=== PATIENT | male | born 1990 | race Caucasian/White ===

== ENCOUNTER → 2018-09-18 14:03 | Outpatient (CLI) | payer BC, SELFPAY ==
[2018-09-18 15:38] LABS: Alanine Aminotransferase 55 U/L (12-78); Albumin Level 4.4 gm/dL (3.4-5.0); Albumin/Globulin Ratio 1.3 (1.1-1.8); Alkaline Phosphatase 59 U/L (46-116); Anion Gap 12.9 mEq/L (5-15); Aspartate Amino Transferase 14 U/L (15-37); Bilirubin,Total 2.1 mg/dL (0.2-1.0); Blood Urea Nitrogen 13 mg/dL (7-18); Carbon Dioxide 28 mmol/L (21.0-32.0); Chloride 103 mmol/L (98-107); Creatinine,Serum 1.03 mg/dL (0.70-1.30); Estimated Glomerular Filt Rate 85 ml/min (>60); GFR (African American) 103 ML/MIN (>60); Globulin 3.5 gm/dl (1.3-3.2); Potassium 3.9 mmoL/L (3.5-5.1); Sodium 140 mmol/L (136-145); Total Protein,Serum 7.9 gm/dL (6.4-8.2)
[2018-09-18 16:22] LABS: Glucose 101 mg/dL (74-106)
== END ==
PROVIDERS: Visit Provider Surgery
DX: K80.20 Calculus of gallbladder without cholecystitis without obstruction (principal)
CPT/HCPCS: 36415; 80053

== ENCOUNTER → 2018-09-24 06:12 | Outpatient (CLI) | payer BC, SELFPAY ==
[2018-09-24 06:37] LABS: Basophils % 0.6 % (0.1-2.0); Eosinophils # 0.1 K/mm3 (0.0-0.4); Eosinophils % 2.1 % (0.1-12.0); Hematocrit 47.4 % (42.0-52.0); Hemoglobin 15.7 g/dL (14.1-18.0); Lymphocytes # 2.6 K/mm3 (0.7-4.5); Lymphocytes % 39.4 % (10-50); Mean Corpuscular Hemoglobin 28.8 pg (27.0-31.2); Mean Corpuscular Volume 87.1 fl (80-94); Mean Platelet Volume 6.7 fl (7.4-10.4); Monocytes # 0.3 K/mm3 (0.1-1.0); Monocytes % 4.8 % (1.7-9.3); Neutrophils # 3.6 K/mm3 (1.8-7.8); Neutrophils % 53.2 % (37.0-80.0); Platelet Count 241 K/mm3 (142-424); Red Blood Count 5.44 M/mm3 (4.60-6.20); Red Cell Distribution Width 12.8 % (11.5-17.5); White Blood Count 6.7 K/mm3 (4.8-10.8)
[2018-09-24 06:52] LABS: Alanine Aminotransferase 83 U/L (12-78); Albumin Level 4.3 gm/dL (3.4-5.0); Alkaline Phosphatase 58 U/L (46-116); Anion Gap 11.6 mEq/L (5-15); Aspartate Amino Transferase 24 U/L (15-37); Bilirubin,Total 2.1 mg/dL (0.2-1.0); Blood Urea Nitrogen 17 mg/dL (7-18); Calcium 9.7 mg/dL (8.5-10.1); Carbon Dioxide 32 mmol/L (21.0-32.0); Chloride 100 mmol/L (98-107); Creatinine,Serum 0.94 mg/dL (0.70-1.30); Estimated Glomerular Filt Rate 95 ml/min (>60); GFR (African American) 115 ML/MIN (>60); Globulin 4.2 gm/dl (1.3-3.2); Glucose 105 mg/dL (74-106); Potassium 4.6 mmoL/L (3.5-5.1); Sodium 139 mmol/L (136-145); Total Protein,Serum 8.5 gm/dL (6.4-8.2)
== END ==
PROVIDERS: Visit Provider Surgery
DX: Z01.818 Encounter for other preprocedural examination (principal); K80.20 Calculus of gallbladder without cholecystitis without obstruction
CPT/HCPCS: 36415; 80053; 85025

== ENCOUNTER → 2018-10-03 14:13 | Outpatient (CLI) | payer BC, SELFPAY ==
[2018-10-03 14:32] LABS: Basophils % 0.5 % (0.1-2.0); Eosinophils # 0.2 K/mm3 (0.0-0.4); Eosinophils % 2.8 % (0.1-12.0); Hemoglobin 14.6 g/dL (14.1-18.0); Lymphocytes # 1.8 K/mm3 (0.7-4.5); Lymphocytes % 33.2 % (10-50); Mean Corpuscular HGB Conc 34.1 g/dL (31.8-35.4); Mean Corpuscular Hemoglobin 28.8 pg (27.0-31.2); Mean Corpuscular Volume 84.6 fl (80-94); Mean Platelet Volume 6.9 fl (7.4-10.4); Monocytes # 0.2 K/mm3 (0.1-1.0); Monocytes % 3.7 % (1.7-9.3); Neutrophils # 3.3 K/mm3 (1.8-7.8); Neutrophils % 59.9 % (37.0-80.0); Platelet Count 224 K/mm3 (142-424); Red Blood Count 5.08 M/mm3 (4.60-6.20); Red Cell Distribution Width 12.6 % (11.5-17.5); White Blood Count 5.4 K/mm3 (4.8-10.8)
[2018-10-03 15:21] LABS: Alanine Aminotransferase 59 U/L (12-78); Albumin Level 4.1 gm/dL (3.4-5.0); Albumin/Globulin Ratio 1.1 (1.1-1.8); Alkaline Phosphatase 57 U/L (46-116); Amylase 60 U/L (25-115); Anion Gap 14.7 mEq/L (5-15); Aspartate Amino Transferase 17 U/L (15-37); Bilirubin,Direct 0.2 mg/dL (0.0-0.2); Bilirubin,Total 1.4 mg/dL (0.2-1.0); Blood Urea Nitrogen 10 mg/dL (7-18); Calcium 9.3 mg/dL (8.5-10.1); Carbon Dioxide 25 mmol/L (21.0-32.0); Chloride 102 mmol/L (98-107); Creatinine,Serum 0.91 mg/dL (0.70-1.30); Estimated Glomerular Filt Rate 99 ml/min (>60); GFR (African American) 119 ML/MIN (>60); Globulin 3.6 gm/dl (1.3-3.2); Glucose 133 mg/dL (74-106); Lipase 216 u/L (73-393); Potassium 3.7 mmoL/L (3.5-5.1); Sodium 138 mmol/L (136-145); Total Protein,Serum 7.7 gm/dL (6.4-8.2)
== END ==
PROVIDERS: Visit Provider Surgery
DX: K81.9 Cholecystitis, unspecified (principal)
CPT/HCPCS: 36415; 80053; 82150; 82248; 83690; 85025

== ENCOUNTER 2020-10-24 21:28 | Emergency (ER) | payer BC, OTHER, SELFPAY ==
[2020-10-24 21:37] VITALS: BP 144/93; PULSE 84; RESP 18; TEMP 37.2; O2SAT 100; BMI 369.6
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
[2020-10-24 22:30] VITALS: BP 143/96; PULSE 74
[2020-10-24 23:48] VITALS: BP 151/97; PULSE 76; RESP 16; TEMP 37; O2SAT 98
== END 2020-10-24 23:52 | disposition home or self-care (01) ==
PROVIDERS: Emergency Provider Emergency Medicine
DX: S92.315A Nondisplaced fracture of first metatarsal bone, left foot, initial encounter for closed fracture (principal); W22.09XA Striking against other stationary object, initial encounter; Y92.89 Other specified places as the place of occurrence of the external cause
CPT/HCPCS: 29515; 73630; 73700; 99283

== ENCOUNTER → 2020-11-24 09:23 | Outpatient (CLI) | payer BC, OTHER, SELFPAY ==
--- NOTE | 2020-11-24 09:27 | XR_ITS ---
PROCEDURE: XR FOOT WT BEARING LT 3V CLINICAL INDICATION: fracture follow up COMPARISON: CR XR FOOT LT MIN 3V from 10/24/2020 FINDINGS: AP lateral and oblique films show no definite fracture at the base of the 1st metatarsal. The tarsal bones all appear intact. The there is a tiny spur of the calcaneus at the insertion of the plantar tendon and Achilles tendon. Plantar arch is normal. IMPRESSION: Negative for acute fracture Dictated by: Dr. Reese Silva MD 11/24/2020 11:38 Dr. Reese Silva MD in [place] 11/24/2020 11:38
== END ==
PROVIDERS: Visit Provider Podiatrist
DX: S92.315D Nondisplaced fracture of first metatarsal bone, left foot, subsequent encounter for fracture with routine healing (principal); T14.8XXA Other injury of unspecified body region, initial encounter
CPT/HCPCS: 73630

== ENCOUNTER → 2020-12-22 09:03 | Outpatient (CLI) | payer BC, OTHER, SELFPAY ==
--- NOTE | 2020-12-22 09:06 | XR_ITS ---
PROCEDURE: XR FOOT WT BEARING LT 3V CLINICAL INDICATION: foot pain COMPARISON: CR XR FOOT LT MIN 3V from 10/24/[address] FOOT LT WO CON from 10/24/2020 CR XR FOOT WT BEARING LT 3V from 11/24/2020 FINDINGS: There is a known fracture at the base of the 1st metatarsal as seen on the previous CT scan of 10/24/2020. This is below limits of resolution on radiograph. A small fragment is noted along the base and lateral aspect of the 1st metatarsal. The main fracture fragment however is not delineated. Minimal osteoarthritic change 1st MTP joint. Minimal osteoarthritic change talonavicular joint. Other findings:None. IMPRESSION: No change nondisplaced avulsion fracture at the base of the 1st metatarsal laterally. The main fracture line seen on the previous CT scan is not identified and may be below limits of resolution on the radiograph. Dictated by: Jason Driscoll MD 12/22/2020 13:49 Jason Driscoll MD in [place] 12/22/2020 13:49
== END ==
PROVIDERS: Visit Provider Podiatrist
DX: M79.672 Pain in left foot (principal)
CPT/HCPCS: 73630

== ENCOUNTER 2021-01-14 14:30 | Outpatient (RCR) | payer BC, OTHER, SELFPAY | END 2021-01-14 14:35 | disposition home or self-care (01) | LOC: PT 14:30 | PROVIDERS: PCP Nurse Practitioner; Visit Provider Nurse Practitioner | DX: S92.315D Nondisplaced fracture of first metatarsal bone, left foot, subsequent encounter for fracture with routine healing (principal) | CPT/HCPCS: 97163 ==

== ENCOUNTER → 2021-01-18 08:21 | Outpatient (CLI) | payer BC, OTHER, SELFPAY ==
--- NOTE | 2021-01-18 08:24 | XR_ITS ---
PROCEDURE: XR FOOT WT BEARING LT 3V CLINICAL INDICATION: foot pain COMPARISON: CR XR FOOT LT MIN 3V from 10/24/2020 CR XR FOOT WT BEARING LT 3V from 11/24/2020 CR XR FOOT WT BEARING LT 3V from 12/22/2020 FINDINGS: Small avulsion fracture base of 1st metatarsal again noted with mild soft tissue swelling, similar to prior exam. No acute fracture or dislocation. Small plantar and posterior calcaneal spurs. Slight flattening of the arch. Joint spaces are normal. IMPRESSION: Essentially unchanged avulsion fracture base of 1st metatarsal with mild soft tissue swelling. Dictated by: Facundo Mcghee 01/18/2021 08:36 Facundo Mcghee in [place] 01/18/2021 08:36
== END ==
PROVIDERS: Visit Provider Podiatrist
DX: M79.672 Pain in left foot (principal)
CPT/HCPCS: 73630

== ENCOUNTER 2021-03-10 19:11 | Emergency (ER) | payer BC, OTHER, SELFPAY ==
[2021-03-10 19:12] VITALS: BP 134/77; PULSE 85; RESP 20; TEMP 37.2; O2SAT 98; BMI 38.2
--- NOTE | 2021-03-10 20:05 | HMH.EDUTC ---
[facility] [place] Impression: Viral syndrome Pharyngitis Qualifiers: Pharyngitis/tonsillitis etiology: unspecified etiology Qualified Code(s): J02.9 - Acute pharyngitis, unspecified Disposition: Home, Self-Care Condition on Discharge: Good Instructions: DI for Viral Syndrome, Preventing the Spread of Coronavirus Discharge Instructions Prescriptions: Ondansetron [Zofran 4mg ODT] 4 mg PO Q8HP PRN #20 tab.rapdis PRN Reason: Nausea Transmission Status: [facility] Benzonatate [Tessalon Perle 100mg Cap] 100 mg PO TIDP PRN #30 cap PRN Reason: Cough Transmission Status: Received by [facility] Azithromycin [Z-Taye 250mg Tab*] 250 mg PO UD DOSE PK #6 tab Transmission Status: Received by [facility] Referrals: Provider,Referral, MD [Primary Care Provider] - Time of Disposition: 20:30 Medical Decision Making - Medical Records Medical records reviewed: No: I reviewed the patient's medical records. - Rajan Inquiry Pt receiving controlled substance: No Vital Signs: 03/10/21 19:12 03/10/21 20:46 Temperature 99.0 F 98 F Temperature Source Oral Oral Pulse Rate 85 Pulse Rate [Left Radial] 85 Respiratory Rate 20 20 Blood Pressure 134/77 Blood Pressure [Right Arm] 134/77 Blood Pressure Mean [Right Arm] 96 Blood Pressure Source Automatic Cuff Blood Pressure Source [Right Arm] Automatic Cuff Blood Pressure Position Sitting Blood Pressure Position [Right Arm] Sitting 02 Sat by Pulse Oximetry 98 Oxygen Delivery Method Room Air Room Air [facility] [place] - General Stated complaint: Diarrhea weakness Time Seen by Provider: 03/10/21 20:05 Mode of Arrival: Ambulatory Source of Information: Patient Limitations: No Limitations Description of Symptoms (Recalled from Triage Doc. by RN): c/o diarrhea, weakess, and chills HEENT Symptoms (Recalled from RN notes): Yes Resp Symptoms (Recalled from RN notes): Yes Skin Symptoms (Recalled from RN notes): No MS Symptoms (Recalled from RN notes): No Functional Status (Recalled from RN notes): wnl - History of Present Illness Provider Complaint: He c/o 2 days for a runny nose, scratchy sore throat, chest congestion and cough. - Related Data Previous Rx's Medication Instructions Recorded meloxicam 7.5 mg tablet 7.5 mg PO ONCE 30 Days #30 tab 10/26/20 Azithromycin [Z-Taye 250mg Tab*] 250 mg PO UD DOSE PK #6 tab 03/10/21 Benzonatate [Tessalon Perle 100mg 100 mg PO TIDP PRN #30 cap 03/10/21 Cap] Ondansetron [Zofran 4mg ODT] 4 mg PO Q8HP PRN #20 tab.rapdis 03/10/21 Allergies Allergy/AdvReac Type Severity Reaction Status Date / Time No Known Allergies Allergy Verified 01/18/21 08:46 - Worker's Comp Is this a Worker's Comp case?: No [facility] History - Hepatitis A Screen Drug use history?: No High risk sexual behaviors?: No History of sexually transmitted infection?: No Currently employed?: No Childcare worker?: No Do you have indoor plumbing?: Yes Do you have electricity?: Yes Attestation statement:: This patient has been screened for Hepatitis A risk factors. I have reviewed the patient's past medical history: Yes Medical History: Denies:: Cancer, Diabetes Mellitus Type 1, Diabetes Mellitus Type 2, Internal Pacemaker, MRSA, Seizures Other Medical History: Denies: Blood Transfusion Reaction Other Surgeries: Yes: No Previous Surgery, Cholecystectomy. No: Pacemaker Amputation: No Fractures: No - Social History Smoking Status: Former smoker Tobacco Type: smokeless tobacco Alcohol Intake: never Substance Use Type: denies use Occupational Status: employed Housing: house Household Members: significant other Family Hx:: Diabetes, Heart Attack, Stroke ROS Obtained: Yes All systems reviewed & no additional complaints - Constitutional Constitutional: Reports as per HPI - Eyes Eyes: Denies eye discharge - ENT Ears, Nose, Mouth, and Throat: Reports as per HPI - Cardiovascular Cardiovas
[2021-03-10 20:46] VITALS: BP 134/77; PULSE 85; RESP 20; TEMP 36.6; O2SAT 98
== END 2021-03-10 20:51 | disposition home or self-care (01) ==
PROVIDERS: Emergency Provider Nurse Practitioner Family
DX: B34.9 Viral infection, unspecified (principal); J02.9 Acute pharyngitis, unspecified; Z20.822 Contact with and (suspected) exposure to COVID-19; Z87.891 Personal history of nicotine dependence
CPT/HCPCS: 99202; G0463; U0003

== ENCOUNTER 2021-08-17 11:11 | Emergency (ER) | payer BC, OTHER, SELFPAY ==
[2021-08-17 13:00] VITALS: BP 141/87; PULSE 89; RESP 19; TEMP 37.3; O2SAT 98; BMI 38.7
[2021-08-17 13:05] LABS: UTC Influenza A Antigen Negative (Negative); UTC Influenza B Antigen Negative (Negative)
[2021-08-17 13:05] LABS: UTC Strep Screen (Rapid) Negative (Negative)
--- NOTE | 2021-08-17 13:07 | HMH.EDUTC ---
[facility] [place] Clinical Impression: Viral syndrome Disposition: Home, Self-Care Condition on Discharge: Good Instructions: DI for Viral Syndrome, DI for Vomiting -- Adult, Nausea and Vomiting-Adult Additional Instructions: *Monitor Temp, Over the counter Motrin or Tylenol as directed/as needed Tylenol every 4 hours and Motrin every 6 hours (as long as your family doctor has told you that you can take it) for fever or pain. and straight to ER if unable to lower temp less than 101.0 after medication given *Warm salt water gargles may help to soothe the throat *Throat Lozenges *Warm fluids like tea with honey may help to soothe the throat *Sleep elevated *Humidifier/Vaporizer Your throat swab was sent for culture. Those results are typically sent to your primary care. Be sure to follow up in 2-3 days with your family doctor/primary care physician if no improvement so they can review those result and treat if necessary. If you don?t have a primary care doctor, I recommend you get one but in the mean time, you will have to return to a walk in clinic Follow up IMMEDIATELY for new or worsening symptoms or no Noticeable improvement over the next 48-72 hours. 911 for difficulty breathing or swallowing You were tested for today for COVID19 your test result should be back in the next 24-48 hours, you check your results on the [facility] my health portal if you have trouble logging on or seeing your results you may call You was given a handout with instructions for Self Quarantine and Self isolation for while you wait on test results and what to do if they are positive If you are positive the Health Dept will be contacting you also Make sure to take your Vitamins Vit. C Vit D and Zinc if you can take them Prescriptions: Ondansetron [Zofran 4mg ODT] 4 mg PO TIDP PRN #10 tab PRN Reason: Vomiting Transmission Status: Pending to [facility] Referrals: Provider,Referral, [Primary Care Provider] - Forms: Work/School Release Time of Disposition: 13:11 Medical Decision Making - Rajan Inquiry Pt receiving controlled substance: No Rajan was queried for this patient: No Vital Signs: 08/17/21 13:00 Temperature 99.1 F Temperature Source Oral Pulse Rate [Right Radial] 89 Respiratory Rate 19 Blood Pressure [Right Arm] 141/87 H Blood Pressure Mean [Right Arm] 105 Blood Pressure Source [Right Arm] Automatic Cuff Blood Pressure Position [Right Arm] Sitting 02 Sat by Pulse Oximetry 98 Oxygen Delivery Method Room Air - Lab Data Lab results reviewed: Yes: I reviewed the patient's lab results. Lab Results 08/17/21 12:47: Influenza Type A Ag Negative, Influenza Type B Ag Negative 08/17/21 12:56: Strep Scn Rapid Clinic Negative Orders (Tests/Meds): ORDERS Category Date Time Status Covid-19 Nasal PCR ([facility]) Routine Lab 08/17/21 12:47 Ordered Strep Screen Confirmation Stat Micro 08/17/21 12:[address] [facility] UTC HPI - General Stated complaint: sore throat,cough,headache,runny nose Time Seen by Provider: 08/17/21 13:07 Mode of Arrival: Ambulatory Source of Information: Patient Limitations: No Limitations Description of Symptoms (Recalled from Triage Doc. by RN): C/O chills, vomiting, runny nose, CHASE, diarrhea, congestion since last night HEENT Symptoms (Recalled from RN notes): Yes (congestion, runny nose, CHASE) Resp Symptoms (Recalled from RN notes): No Skin Symptoms (Recalled from RN notes): No MS Symptoms (Recalled from RN notes): No Functional Status (Recalled from RN notes): n/a - History of Present Illness Provider Complaint: Patient states that mother in law was tested for COVID yesterday still awaiting results States that he started last night with body aches, chills, headache sore throat N/V States that this morning he had diarrhea and still feeling bad so he came in to get checked - Related Data Previous Rx's Medication Instructions Recorded meloxicam 7.5 mg tablet 7.5 mg PO ONCE 30 Days #30
[2021-08-17 13:22] VITALS: BP 141/87; PULSE 89; RESP 19; TEMP 37.3; O2SAT 98
== END 2021-08-17 13:24 | disposition home or self-care (01) ==
PROVIDERS: Emergency Provider Nurse Practitioner
DX: U07.1 COVID-19 (principal); B34.9 Viral infection, unspecified
CPT/HCPCS: 87804; 87880; 99203; C9803; G0463; U0003; U0005

== ENCOUNTER → 2021-08-20 15:42 | Outpatient (CLI) | payer BC, OTHER, SELFPAY | PROVIDERS: Visit Provider Nurse Practitioner | DX: U07.1 COVID-19 (principal) | CPT/HCPCS: C9803; U0003; U0005 ==

== ENCOUNTER 2021-11-03 06:39 | Emergency (ER) | payer BC, OTHER, SELFPAY ==
[2021-11-03 06:49] VITALS: BP 120/73; PULSE 102; RESP 18; TEMP 37.3; O2SAT 97; BMI 36.9
--- NOTE | 2021-11-03 06:55 | XR_ITS ---
FINAL REPORT CLINICAL HISTORY: COUGH..fever COMPARISON: 06/12/2019 FINDINGS: Two views of the chest were obtained. The heart size and pulmonary vascularity are within normal limits. The mediastinum is normal. No acute pulmonary abnormality is identified. There is no pneumothorax. The bony thorax is intact. IMPRESSION: No active cardiopulmonary disease. Reviewed, Interpreted and Dictated by Dmitry Marie III, MD Transcribed by Gabriella Oliva Authenticated by Dmitry Marie III, MD on 11/03/2021 08:44:39 AM [facility]
[2021-11-03 07:00] LABS: Coronavirus 19, PCR Not Detected (NotDetected); Influenza B, PCR Not Detected (NotDetected)
[2021-11-03 07:22] LABS: Basophils % 0.8 % (0.1-2.0); Eosinophils % 0.4 % (0.1-12.0); Hematocrit 42.6 % (42.0-52.0); Hemoglobin 14.8 g/dL (14.1-18.0); Lymphocytes # 0.4 K/mm3 (0.7-4.5); Lymphocytes % 12.3 % (10-50); Mean Corpuscular HGB Conc 34.7 g/dL (31.8-35.4); Mean Corpuscular Volume 86.7 fl (80-94); Monocytes # 0.3 K/mm3 (0.1-1.0); Monocytes % 8.1 % (1.7-9.3); Neutrophils # 2.7 K/mm3 (1.8-7.8); Neutrophils % 78.4 % (37.0-80.0); Platelet Count 216 K/mm3 (142-424); Red Blood Count 4.92 M/mm3 (4.60-6.20); Red Cell Distribution Width 13.5 % (11.5-17.5); White Blood Count 3.4 K/mm3 (4.8-10.8)
[2021-11-03 07:30] LABS: Alanine Aminotransferase 54 U/L (12-78); Albumin Level 4.4 g/dl (3.5-5.0); Albumin/Globulin Ratio 1.5 (1.1-1.8); Alkaline Phosphatase 51 U/L (38-126); Anion Gap 11.9 mEq/L (5-15); Aspartate Amino Transferase 36 U/L (17-59); Bilirubin,Total 1.3 mg/dl (0.2-1.3); Blood Urea Nitrogen 11 mg/dl (9-20); Calcium 8.9 mg/dl (8.4-10.2); Carbon Dioxide 28 mmol/L (22.0-30.0); Chloride 100 mmol/L (98-107); Creatinine Clearance Estimated 172 mL/min (50-200); Estimated Glomerular Filt Rate 77 ml/min (>60); GFR (African American) 93 ML/MIN (>60); Globulin 2.9 g/dL (1.3-3.2); Glucose 143 mg/dl (74-100); Potassium 3.9 mmoL/L (3.5-5.1); Sodium 136 mmol/L (136-145); Total Protein,Serum 7.3 g/dl (6.3-8.2)
[2021-11-03 07:35] LABS: C-Reactive Protein 10.6 mg/L (0-4)
--- NOTE | 2021-11-03 07:39 | HMH.EDURI ---
ED Disposition Clinical Impression: Influenza Disposition: Home, Self-Care Condition on Discharge: Good Instructions: DI for H1N1 Influenza -- Adult Additional Instructions: fluids and see pcp for follow up Prescriptions: Oseltamivir Phosphate [Tamiflu 75mg Capsule] 75 mg PO BID #10 cap Transmission Status: Pending to [facility] Ondansetron [Zofran 4mg ODT] 4 mg PO TIDP PRN #21 tab PRN Reason: Nausea And Vomiting Transmission Status: Pending to [facility] Referrals: Provider,Referral, [Primary Care Provider] - - Critical Care Critical Care Time: No Attestation: On 11/03/21, the high probability of a clinically significant, sudden or life threatening deterioration of the following system(s) required my full and direct attention, intervention and personal management. The time I documented below is in addition to time spent performing reported procedures but includes the following listed in this critical care notation. Medical Decision Making - Medical Records Medical records reviewed: Yes: I reviewed the patient's medical records. - Rajan Inquiry Pt receiving controlled substance: No Vital Signs: 11/03/21 06:49 11/03/21 08:00 Temperature 99.1 F Temperature Source Oral Pulse Rate 87 Pulse Rate [Left Radial] 102 H Respiratory Rate 18 Blood Pressure 115/70 Blood Pressure [Right Arm] 120/73 Blood Pressure Mean [Right Arm] 88 Blood Pressure Position [Right Arm] Sitting 02 Sat by Pulse Oximetry 97 95 Oxygen Delivery Method Room Air - Lab Data Lab results reviewed: Yes: I reviewed the patient's lab results. Lab Results 11/03/21 06:54: SARS-CoV-2 (PCR) Not detected, Influenza A Untype (PCR) Detected A, Influenza Type B (PCR) Not detected 11/03/21 07:10: WBC 3.4 L, RBC 4.92, Hgb 14.8, Hct 42.6, MCV 86.7, MCH 30.0, MCHC 34.7, RDW 13.5, Plt Count 216, MPV 8.0, Neut % (Auto) 78.4, Lymph % (Auto) 12.3, [place] % (Auto) 8.1, Eos % (Auto) 0.4, Baso % (Auto) 0.8, Neut # (Auto) 2.7, Lymph # (Auto) 0.4 L, [place] # (Auto) 0.3, Eos # (Auto) 0.0, Baso # (Auto) 0.0 11/03/21 07:10: Sodium 136, Potassium 3.9, Chloride 100, Carbon Dioxide 28, Anion Gap 11.9, BUN 11, Creatinine 1.10, Estimated Creat Clear 172, Estimated GFR 77, Est GFR ( Amer) 93, Glucose 143 H, Calcium 8.9, Total Bilirubin 1.3, AST 36, ALT 54, Alkaline Phosphatase 51, C-Reactive Protein 10.6 H, Total Protein 7.3, Albumin 4.4, Globulin 2.9, Albumin/Globulin Ratio 1.5 11/03/21 07:10: ESR 19 H 11/03/21 07:10: Procalcitonin 0.111 Result diagrams: 11/03/21 07:10 11/03/21 07:10 Orders (Tests/Meds): ED MEDICATIONS Discontinued Medications Generic Name Dose Route Start Last Admin Trade Name Freq PRN Reason Stop Dose Admin Acetaminophen 1,000 mg 11/03/21 06:58 11/03/21 07:34 Acetaminophen 500mg Tab PO 11/03/21 06:59 1,000 mg ONCE ONE Administration Sodium Chloride 1,000 mls @ 999 mls/hr 11/03/21 07:00 11/03/21 07:35 Sod Chlor 0.9% 1000ml Bag IV 11/03/21 08:00 999 mls/hr .Q1H1M ROHIT Administration ORDERS Category Date Time Status CXR 2 view (NOT portable) [XR chest 2V] Stat Exams 11/03/21 06:55 Taken - Radiology Data #1 Image(s): Chest Image Reviewed: Yes I reviewed the patient's radiology image Preliminary Findings: Normal/NAD Medical Decision Narrative: has flu and compatable sx URI/Sore Throat HPI - General Chief Complaint: Upper Respiratory Infection Stated Complaint: fever, weakness, nausea Time Seen by Provider: 11/03/21 07:15 Mode of Arrival: Ambulatory Source of Information: Patient, Medical Record Limitations: No Limitations Description of Symptoms (Recalled from ER Triage Doc. by RN): PT STATES HE STARTED FEELING POORLY LAST NIGHT AT 2100. CHILLS, BODY ACHES, HEADACHE NAUSEA. PT REPORTS HE TOOK MOTRIN AT 530. - History of Present Illness HPI Narrative: gilbert with chills and achey which started last pm MD Complaint: cough Onset (ago): da
[2021-11-03 07:49] LABS: Procalcitonin 0.111 ng/mL (0.0-2.0)
[2021-11-03 07:52] LABS: Influenza A, PCR Detected (NotDetected)
[2021-11-03 07:52] LABS: Erythrocyte Sedimentation Rate 19 mm/hr (0-15)
[2021-11-03 08:00] VITALS: BP 115/70; PULSE 87; O2SAT 95
[2021-11-03 09:31] VITALS: BP 112/70; PULSE 96; RESP 16; TEMP 36.8; O2SAT 96
== END 2021-11-03 09:34 | disposition home or self-care (01) ==
PROVIDERS: Emergency Provider Emergency Medicine
DX: J10.1 Influenza due to other identified influenza virus with other respiratory manifestations (principal)
CPT/HCPCS: 71046; 80053; 84145; 85025; 85651; 86140; 96360; 96365; 99284; C9803; U0003; U0005

== ENCOUNTER 2023-02-10 18:00 | Emergency (ER) | payer BC, OTHER, SELFPAY ==
[2023-02-10 18:24] VITALS: BP 146/83; PULSE 81; RESP 20; TEMP 36.8; O2SAT 99; BMI 36.9
--- NOTE | 2023-02-10 18:27 | HMH.EDEYEP ---
Discharge Plan Disposition Patient Disposition: Xfer Other Chief Complaint: Dental/Oral Prescriptions Prescriptions: No Action meloxicam [Mobic] 7.5 mg tablet 7.5 mg PO ONCE 30 Days Qty: 30 2RF azithromycin 250 MG tablet 250 mg PO UD DOSE PK Qty: 6 0RF Rx Instructions: Take two (2) tablets today, then one (1) tablet days #2 thru #5 benzonatate 100 MG capsule 100 mg PO TIDP PRN (Reason: Cough) Qty: 30 0RF ondansetron 4 MG tablet,disintegrating 4 mg PO Q8HP PRN (Reason: Nausea) Qty: 20 0RF oseltamivir 75 MG capsule 75 mg PO BID Qty: 10 0RF ondansetron 4 MG tablet,disintegrating 4 mg PO TIDP PRN (Reason: Nausea And Vomiting) Qty: 21 0RF ondansetron 4 MG tablet,disintegrating 4 mg PO TIDP PRN (Reason: Vomiting) Qty: 10 0RF Referrals Follow up/Referrals: Provider,Referral, MD [Primary Care Provider] - See instructions Clinical Impressions Clinical Impression: Monocular vision loss Stand Alone Forms Stand Alone Forms: Transfer Record - ED Discharge ED Provider: Rosalio Randall Eye Problem HPI General Chief complaint: Dental/Oral Stated complaint: Left side facial swelling; blurry vision Time Seen by Provider: 02/10/23 18:15 History of Present Illness HPI Narrative: 32-year-old white male awakened this morning felt like his left eye was swollen and tender and noted that his vision was blurred in the left eye. The patient has really no idea what caused this nothing is gotten into his eye no purulence or drainage. He has no primary care physician and did not seek medical attention all day Related Data Previous Rx's Medication Instructions Recorded meloxicam 7.5 mg tablet (Mobic) 7.5 mg PO ONCE pain 30 days #30 10/26/20 tabs azithromycin 250 mg tablet 250 mg PO UD DOSE PK #6 tabs 03/10/21 benzonatate 100 mg capsule 100 mg PO TIDP PRN Cough #30 caps 03/10/21 ondansetron 4 mg disintegrating 4 mg PO Q8HP PRN Nausea ##20 03/10/21 tablet ondansetron 4 mg disintegrating 4 mg PO TIDP PRN Vomiting #10 tabs 08/17/21 tablet ondansetron 4 mg disintegrating 4 mg PO TIDP PRN Nausea And 11/03/21 tablet Vomiting #21 tabs oseltamivir 75 mg capsule 75 mg PO BID #10 caps 11/03/21 Allergies Allergy/AdvReac Type Severity Reaction Status Date / Time No Known Allergies Allergy Verified 01/18/21 08:46 [facility] Disclaimer: The information contained in this section may have been updated after the patient was seen, as this information can be updated by other users. Social History Smoking Status: Never smoker second hand exposure: No alcohol intake: never substance use type: denies use current occupational status: employed Travel in the last 8 weeks: None household members: significant other housing: house current occupation: [employer] current occupational exposures/hazards: No caffeine: Yes ROS Obtained: Yes Systems reviewed as appropriate & no additional complaints except as documented Physical Exam General General appearance: alert and in no apparent distress Head Head exam: atraumatic and normocephalic Eye Eye exam: Present normal appearance, PERRL and EOMI ENT ENT exam: Present normal exam Neck Neck exam: Present normal inspection Respiratory Respiratory exam: Present normal lung sounds bilaterally and respiratory distress Cardiovascular Cardiovascular exam: Present regular rate and normal rhythm Abdominal Exam Abdominal exam: Present soft; Absent distention Extremities Exam Extremities exam: Present normal inspection Neurological Exam Neurological exam: Present alert, oriented X3 and CN II-XII intact Medical Decision Making Medical Records MR Comment: 32-year-old white male awoke this morning about 8 AM with his left eye and face with sensation of swelling. He has had some pain in that area and has noted that his vision has significantly decreased from baseline. This persi
--- NOTE | 2023-02-10 18:36 | PC.NURSE ---
visual acuity 20/70 in the left eye (affected) 20/30 in the right eye
--- NOTE | 2023-02-10 19:18 | PC.NURSE ---
o/p with [facility] for possible transfer.
--- NOTE | 2023-02-10 19:20 | PC.NURSE ---
[facility] will call back when a transfer rep is available.
--- NOTE | 2023-02-10 19:36 | CT_ITS ---
PROCEDURE INFORMATION: Exam: CT Head Without Contrast Exam date and time: 02/10/2023 7:53 PM Age: 32 years old Clinical indication: Patient HX: Acute monocular vision loss w lt sided facial swelling TECHNIQUE: Imaging protocol: Computed tomography of the head without contrast. Radiation optimization: All CT scans at this facility use at least one of these dose optimization techniques: automated exposure control; mA and/or kV adjustment per patient size (includes targeted exams where dose is matched to clinical indication); or iterative reconstruction. REPORTING DATA: Count of CT and Cardiac NM exams in prior 12 months: This patient has received 0 known CTs and 0 known cardiac nuclear medicine studies in the 12 months prior to the current study. COMPARISON: CT HEAD/BRAIN WO CON 06/12/2019 9:15 PM FINDINGS: Brain: Normal. No hemorrhage. Unremarkable white matter. No mass effect. Cerebral ventricles: No ventriculomegaly. Paranasal sinuses: Visualized sinuses are unremarkable. No fluid levels. Mastoid air cells: Visualized mastoid air cells are well aerated. Bones/joints: Unremarkable. No acute fracture. Soft tissues: Unremarkable. IMPRESSION: No acute intracranial abnormality.
--- NOTE | 2023-02-10 19:36 | CT_ITS ---
PROCEDURE INFORMATION: Exam: CTA Head With Contrast, Arteriography Exam date and time: 02/10/2023 7:55 PM Age: 32 years old Clinical indication: Patient HX: Acute monocular vision loss w lt sided facial swelling TECHNIQUE: Imaging protocol: Computed tomographic angiography of the head with contrast. Exam focused on the arteries. 3D rendering (Not supervised by radiologist): MIP and/or 3D reconstructed images were created by the technologist. Radiation optimization: All CT scans at this facility use at least one of these dose optimization techniques: automated exposure control; mA and/or kV adjustment per patient size (includes targeted exams where dose is matched to clinical indication); or iterative reconstruction. Contrast material: ISOVUE 370; Contrast volume: 100 ml; Contrast route: INTRAVENOUS (IV); REPORTING DATA: Count of CT and Cardiac NM exams in prior 12 months: This patient has received 0 known CTs and 0 known cardiac nuclear medicine studies in the 12 months prior to the current study. COMPARISON: CT HEAD/BRAIN WO CON 02/10/2023 7:53 PM FINDINGS: ANTERIOR CIRCULATION: Right internal carotid artery: Intracranial segment is patent with no significant stenosis. No aneurysm. Right middle cerebral artery: No occlusion or significant stenosis. No aneurysm. Right anterior cerebral artery: No occlusion or significant stenosis. No aneurysm. Left internal carotid artery: Intracranial segment is patent with no significant stenosis. No aneurysm. Left middle cerebral artery: No occlusion or significant stenosis. No aneurysm. Left anterior cerebral artery: No occlusion or significant stenosis. No aneurysm. POSTERIOR CIRCULATION: Right vertebral artery: No occlusion or significant stenosis. No aneurysm. Left vertebral artery: No occlusion or significant stenosis. No aneurysm. Basilar artery: No occlusion or significant stenosis. No aneurysm. Right posterior cerebral artery: No occlusion or significant stenosis. No aneurysm. Left posterior cerebral artery: No occlusion or significant stenosis. No aneurysm. Other arteries: Bilateral ophthalmic arteries appear patent. Brain: No definite mass, mass effect, or midline shift. Cerebral ventricles: No ventriculomegaly. Bones/joints: Unremarkable. No acute fracture. Soft tissues: Soft tissue swelling of the left nasolabial fold noted. IMPRESSION: No large vessel stenosis or occlusion. Patent bilateral ophthalmic arteries. Left facial soft tissue swelling noted.
--- NOTE | 2023-02-10 20:29 | PC.NURSE ---
Called [facility], notified them of power-shared images from CT angio head and neck. They advised they would call back after reviewing images.
--- NOTE | 2023-02-10 20:48 | PC.NURSE ---
[facility] Dr[facility] Williamson is ready to s/w Dr. Randall. He accepted the pt. MD is ok with them going POV if agrees
[2023-02-10 20:57] VITALS: BP 126/83; PULSE 85; RESP 18; TEMP 36.8; O2SAT 97
== END 2023-02-10 21:11 | disposition other institution (70) ==
PROVIDERS: Emergency Provider Emergency Medicine
DX: R22.0 Localized swelling, mass and lump, head (principal); H53.8 Other visual disturbances
CPT/HCPCS: 70450; 70496; 99284; 99285; Q9967

== ENCOUNTER → 2023-02-28 14:34 | Outpatient (CLI) | payer BC, OTHER, SELFPAY ==
--- NOTE | 2023-02-28 14:42 | XR_ITS ---
FINAL REPORT CLINICAL HISTORY: shoulder pain, pain since december, unknown injury, limited ROM, pain, no sx, right arm goes numb FINDINGS: RIGHT SHOULDER SERIES Three views of the right shoulder were obtained. There is no acute fracture or dislocation. The joint spaces are preserved. There is no soft tissue abnormality. IMPRESSION: No acute abnormality. Reviewed, Interpreted and Dictated by Gina Bautista MD Transcribed by Liz Ortiz Authenticated and [facility]
== END ==
LOC: RAD 14:39
PROVIDERS: Visit Provider Orthopaedic Surgery
DX: M25.511 Pain in right shoulder (principal)
CPT/HCPCS: 73030

== ENCOUNTER → 2023-03-10 12:59 | Outpatient (CLI) | payer BC, OTHER, SELFPAY ==
--- NOTE | 2023-03-10 13:00 | MR_ITS ---
FINAL REPORT CLINICAL HISTORY: Rt shoulder pain limited rom x 2 months no injury COMPARISON: None FINDINGS: Multiplanar MR imaging of the right shoulder was performed without contrast. There is a focal intrasubstance tear of the footprint of the supraspinatus tendon measuring greater than 50% thickness. There is no full-thickness tear. There is a partial-thickness articular surface subscapularis tear of greater than 50% thickness. There is mild AC joint arthrosis. A small amount of fluid is seen in the subacromial/subdeltoid bursa. The glenoid labrum is intact. The long head of the biceps tendon is intact. There is thickening of the joint capsule at the axillary recess which may represent adhesive capsulitis. No significant glenohumeral joint effusion is seen. There is no evidence of fracture or dislocation. The musculature is intact. There is no evidence of soft tissue mass. IMPRESSION: Supraspinatus tear greater than 50% thickness. Subscapularis tear greater than 50% thickness. Possible adhesive capsulitis. Reviewed, Interpreted and Dictated by Dmitry Marie III, MD Transcribed by Clau Rose Authenticated and [facility]
== END ==
PROVIDERS: Visit Provider Orthopaedic Surgery
DX: M25.511 Pain in right shoulder (principal)
CPT/HCPCS: 73221

== ENCOUNTER → 2023-03-22 16:16 | Outpatient (CLI) | payer BC, OTHER, SELFPAY ==
--- NOTE | 2023-03-22 16:25 | ECG_ITS ---
APPROVED REPORT Exam: Resting ECG HR:73 bpm ECG Measurements Heart Rate 73 AXES MN 193 P 18 QRSd 101 QRS 59 QT 383 T 31 QTc [address] DEVIATION AND MODERATE T-WAVE ABNORMALITY, CONSIDER ANTERIOR ISCHEMIA [-0.1+ mV T-WAVE IN V3/V4] ABNORMAL ECG UNCONFIRMED REPORT Electronically signed by : Jones Ford MD 03/22/2023 17:31:51
--- NOTE | 2023-03-22 16:37 | XR_ITS ---
PROCEDURE INFORMATION: Exam: XR Chest Exam date and time: 03/22/2023 4:39 PM Age: 32 years old Clinical indication: Pre-operative exam; Respiratory screening exam; Patient HX: No chest symptoms, pre-op for shoulder surgery. ; Additional info: Pre op for shoulder surgery TECHNIQUE: Imaging protocol: Radiologic exam of the chest. Views: 2 views. COMPARISON: CR XR CHEST 2V 11/03/2021 7:06 AM FINDINGS: Lungs: Lungs are hypoaerated No evidence of pneumonia or interstitial edema. Pleural spaces: Unremarkable. No pleural effusion. No pneumothorax. Heart/Mediastinum: Unremarkable. No cardiomegaly. Bones/joints: Unremarkable. IMPRESSION: Lungs are hypoaerated No evidence of pneumonia or interstitial edema.
[2023-03-22 17:18] LABS: Basophils % 0.4 % (0.1-2.0); Eosinophils # 0.1 K/mm3 (0.0-0.4); Eosinophils % 1.9 % (0.1-12.0); Hematocrit 46.5 % (42.0-52.0); Hemoglobin 15.4 g/dL (14.1-18.0); Lymphocytes # 2.2 K/mm3 (0.7-4.5); Lymphocytes % 33.4 % (10-50); Mean Corpuscular HGB Conc 33.2 g/dL (31.8-35.4); Mean Corpuscular Volume 87.4 fl (80-94); Mean Platelet Volume 7.6 fl (7.4-10.4); Monocytes # 0.4 K/mm3 (0.1-1.0); Monocytes % 5.7 % (1.7-9.3); Neutrophils # 3.8 K/mm3 (1.8-7.8); Neutrophils % 58.6 % (37.0-80.0); Platelet Count 225 K/mm3 (142-424); Red Blood Count 5.32 M/mm3 (4.60-6.20); White Blood Count 6.5 K/mm3 (4.8-10.8)
[2023-03-22 17:34] LABS: Chloride 100 mmol/L (98-107)
[2023-03-22 17:35] LABS: Potassium 4.1 mmoL/L (3.5-5.1); Sodium 138 mmol/L (136-145)
[2023-03-22 17:37] LABS: Alanine Aminotransferase 34 U/L (12-78); Alkaline Phosphatase 52 U/L (38-126); Anion Gap 16.1 mEq/L (5-15); Aspartate Amino Transferase 27 U/L (17-59); Bilirubin,Total 2.6 mg/dl (0.2-1.3); Blood Urea Nitrogen 9 mg/dl (9-20); Carbon Dioxide 26 mmol/L (22.0-30.0); Estimated Glomerular Filt Rate 86 ml/min (>60); GFR (African American) 103 ML/MIN (>60)
[2023-03-22 17:38] LABS: Albumin Level 4.7 g/dl (3.5-5.0); Albumin/Globulin Ratio 1.4 (1.1-1.8); Calcium 10.1 mg/dl (8.4-10.2); Globulin 3.4 g/dL (1.3-3.2); Glucose 90 mg/dl (74-100); Total Protein,Serum 8.1 g/dl (6.3-8.2)
== END ==
PROVIDERS: Visit Provider Orthopaedic Surgery
DX: Z01.818 Encounter for other preprocedural examination (principal); M75.111 Incomplete rotator cuff tear or rupture of right shoulder, not specified as traumatic
CPT/HCPCS: 36415; 71046; 80053; 85025; 93005

== ENCOUNTER 2023-03-29 07:15 | Day surgery (SDC) | payer BC, OTHER, SELFPAY ==
[2023-03-24 12:21] VITALS: BMI 34.9
[2023-03-29] VITALS (11 sets, daily range): BP systolic 121–155; BP diastolic 66–89; PULSE 58–77; RESP 12–18; TEMP 36.1–36.4; O2SAT 90–99
--- NOTE | 2023-03-29 07:45 | ECG_ITS ---
APPROVED REPORT Exam: Resting ECG HR:72 bpm ECG Measurements Heart Rate 72 AXES WV 205 P 7 QRSd 100 QRS 44 QT 375 T 40 QTc [address] DEVIATION AND MODERATE T-WAVE ABNORMALITY, CONSIDER ANTERIOR ISCHEMIA [-0.1+ mV T-WAVE IN V3/V4] ABNORMAL ECG UNCONFIRMED REPORT Electronically signed by : Jones Ford MD 03/30/2023 06:44:57
--- NOTE | 2023-03-29 07:47 | SUR.PREOP ---
New EKG performed- requested per Keturah Rios CRNA D/T abnormal result. Reviewed and ok for surgery per Keturah Rios CRNA.
--- NOTE | 2023-03-29 07:53 | EXP.ANES.CKL ---
[facility] Disclaimer: The information contained in this section may have been updated after the patient was seen, as this information can be updated by other users. Medical History No significant past medical history Surgical History History of laparoscopic cholecystectomy Family History Other No significant family history Social History Smoking Status: Never smoker second hand exposure: No alcohol intake: never substance use type: denies use current occupational status: employed Travel in the last 8 weeks: None household members: significant other housing: house current occupation: [employer] current occupational exposures/hazards: No caffeine: Yes [facility] Anesthesia Checklist Patient Identification Patient Identification: Arm Band and Verbal (Name & ) Structural Data Admitted From: Home Planned Operative Procedure/s: Rotator cuff repair Consent for Planned Operative Procedure(s) Verified: Yes NPO Status Verified Time NPO: 00:00 Additional verifications Anesthesia Reactions: No Hx Blood Transfusions: No Blood Transfusion Reaction: No Airway Assessment Mallampati Score:: Class II C-Spine Mobility Assessed: Yes TMJ Mobility Assessed: Yes Dentition: Good Dentition Neurological Assessment Level of Consciousness: Awake Hx Seizures: No Numbness or tingling in extremities: No Anesthesia Plan Anesthesia Risk discussed: Yes Anesthesia Plan: Verified ASA Class: II Anesthesia Type: General w/block
--- NOTE | 2023-03-29 11:21 | EXP.OP.NOTE ---
Date of procedure: 03/29/23 Pre-op Diagnosis:: Right shoulder rotator cuff tear Post-op Diagnosis:: Same Procedure performed:: Right shoulder arthroscopy with rotator cuff repair Surgeon:: Gregorio Kern DO DOMESTIC VIOLENCE COUNSELOR:: Other Anesthesia: GETA and regional Estimated blood loss (mL): 0 Operative findings:: Partial tearing subscapularis nondetached Near full-thickness tear supraspinatus Operative note:: Patient was identified preoperatively. Right shoulder marked with yes my initials. Underwent a block with anesthesia. Taken the operating room placed upon operating bed. General anesthesia was administered airway secured. Then placed in a lateral position with a beanbag with all bony prominences well-padded. Right arm was then prepped and draped within the arm kidd. Once prepped and draped final operative timeout performed to identify proper patient procedure and extremity. Everyone involved the case agreed. No counter indications beginning. Did receive preoperative antibiotics. Marking pen was used to florence bony landmarks of the shoulder and standard portal sites. Skin knife was used to incise posterior viewing portal blunt with trocar was placed in the glenohumeral joint exchange with a camera. I moved directly anteriorly above the subscapularis tendon where the anterior working portal was made and switch with a purple cannula. Placed a probe in the shoulder and probed the subscapularis tendon. There was fraying and mild tearing at the superior surface but no detached tear and debridement of this area was performed. Tensions then brought to the glenohumeral joint the biceps anchor was attached there is no evidence of labral tearing there was some mild fraying of the anterior labrum articular cartilage maintained. Viewing the undersurface of the rotator cuff showed no full-thickness tearing. Attention then brought the subacromial space. Within the subacromial space there was significant amount of bursitis bursectomy was performed for visualization the debridement of the bursa was complete and attention was brought to the rotator cuff was very thin at the attachment of the supraspinatus this was probed the tearing was near complete on the supraspinatus so debridement of this area was performed to create full-thickness flaps supraspinatus the footprint then was debrided for repair back onto the footprint. Lateral portal was established with a passport cannula. Footprint debrided. Fiber tape placed through the rotator cuff and a speed fix method was utilized to place a anchor to repair the rotator cuff back to the footprint. This was a 4.75 swivel lock anchor. This gave good repair of the rotator cuff. No further pathology was seen in the camera was removed the joint was drained skin was closed with nylon stitch. Sterile dressing was placed. Patient placed in a sling and pillow. Taken recovery in stable condition. Condition: stable Disposition: PACU Complications:: None apparent
--- NOTE | 2023-03-29 11:22 | P.PNANES_ITS ---
[facility] Anesthesia Record Part I Anesthesia Record I Intake, IV Amount: 1,400 Hydration: Adequate Estimated blood loss (mL): 50 Urine output (mL): 0 Blood Products used (#): none Blood Pressure: 134/66 SaO2: 94 Pulse Rate: 68 Airway Patency: Patent Respiratory Rate: 12 Temperature: 97 F Patient is:: Awake, Nasal O2 and Stable Stable to PACU at:: 11:18
--- NOTE | 2023-03-29 12:30 | PC.NURSE ---
pt's R shoulder and arm/hand, numb and unable to move D/T nerve block preoperatively. Extremity P/W/D. No C/O pain at discharge. Adductor sling in place.
== END 2023-03-29 12:40 | disposition home or self-care (01) ==
PROVIDERS: Visit Provider Orthopaedic Surgery
PROC: (CPT 29827; principal; 2023-03-29 08:45)
DX: M75.111 Incomplete rotator cuff tear or rupture of right shoulder, not specified as traumatic (principal); M25.811 Other specified joint disorders, right shoulder; M75.81 Other shoulder lesions, right shoulder
CPT/HCPCS: 29827; 93005; 96374; C1713; J2405

== ENCOUNTER 2023-06-23 10:00 | Outpatient (RCR) | payer BC, OTHER, SELFPAY ==
--- NOTE | 2023-04-17 16:40 | HMH.OTOPEV ---
OT Inpatient Evaluation Rehab OT Outpatient Eval Start: 04/17/23 16:18 Freq: Status: Active Protocol: Document 04/17/23 16:18 PIEROLEANDRO (Rec: 04/17/23 16:35 PHILLYANIBAL [id number]) E-signed By Kirsten Vergara, OT Outpatient Therapy Subjective History Subjective History 32 year old male referred to skilled OP OT services for Right shoulder arthroscopy with rotator cuff repair. On MRI confirmed: Supraspinatus tear greater than 50% thickness. Subscapularis tear greater than 50% thickness. Possible adhesive capsulitis. Patient stated that he is currently on short term disability at the moment. New diagnosis of cancer in past 12 No months? Chief Complaint Weakness,Decreased [place] Strength Symptom Type Ache Symptoms Relieved By Nothing Symptoms Aggravated By Physical Activity Prior Functional Limitations None Current Functional Limitations Reaching,Recreation Activity Symptom Description Constant and Continuous Level of pain today (0-10) 0 Pain scale - at its best (0-10) 0 Pain scale - at its worst (0-10) 5 Shoulder/Elbow Eval Shoulder Objective Measurements Shoulder ROM Right Shoulder Abduction Active Range of 91 Motion (degrees) Shoulder Flexion Active Range of Motion 78 (degrees) Query Text: Shoulder External Rotation Active Range 0 of Motion (degrees) Shoulder Internal Rotation Active Range 0 of Motion (degrees) pain with active ROM shoulder exam right standard Shoulder MMT Shoulder Abduction Strength Grade 2+ Poor+ Shoulder Extension Strength Grade 2+ Poor+ Shoulder Flexion Strength Grade 2+ Poor+ Shoulder Horizontal Abduction Strength 2+ Poor+ Grade Shoulder Horizontal Adduction Strength 2+ Poor+ Grade Infraspinatus/Teres Minor Strength Grade 2+ Poor+ Shoulder External Rotation Strength 2+ Poor+ Grade Shoulder Internal Rotation Strength 2+ Poor+ Grade Elbow Objective Measurements QuickDASH Activities Please rate your ability to do the following activities in the last week by selecting the number below the appropriate response. 1. Open a tight or new jar. Severe difficulty 2. Do heavy pants closer (e.g., wash Unable sherman, floors). 3. Carry a shopping bag or briefcase. Unable 4. Wash your back. Unable 5. Use a knife to cut food. Unable 6. Recreational activities in which you Unable take some force or impact through your arm, shoulder, or hand (e.g., golf, hammering, tennis, etc.). 7. During the past week, to what extent Quite a bit has your arm, shoulder or hand problem interfered with your normal social activities with family, friends, neighbors or groups? 8. During the past week, were you Unable limited in your work or other regular daily activites as a result of your arm, shoulder or hand problem? 9. Arm, shoulder or hand pain. Moderate 10. Tingling (pins and needles) in your Moderate arm, shoulder or hand. 11. During the past week, how much Severe difficulty difficulty have you had sleeping because of the pain in your arm, shoulder or hand? Quick DASH 48 OT Outpatient Assessment Impairments Problems/Impairments Impaired Range of Motion, Impaired Strength,Subjective C /O Pain Prognosis Rehab Potential Good Clinical Impression Consistent with Diagnosis Yes Short Term Goals Number of Weeks 2 Increase Range of Motion Yes: PROM of R shld flex: 110; abd: 110 Decrease Subjective C/O Pain Yes: 4/10 pain at worst Patient to be Ind w/ Advanced HEP Yes: PROM Cart Driver Goals Number of Weeks 4 Increase Range of Motion Yes: PROM of R shld flex: 130; abd: 130 Decrease Subjective C/O Pain Yes: 3/10 pain at worst Patient to be Ind w/ Advanced HEP Yes: [facility] Outpatient Therapy Plan of Care Treatment Plan May Include Therapeutic Exercise Including Home Yes Exercise Program Manual Therapy Techniques Yes Therapeutic Activities to Return to Yes Previous Functional/Work Level Thermal Modalities Yes Electrical Stimulation Yes Ultrasound/Phonophoresis Yes Iontophoresis Yes Eval/Re-Eval Yes Aquatic Therapy Yes Frequency Times per week 2x/wk Duration Number of Weeks 4 weeks Addendums This patient is a candidate for social No or vocational rehab? Patient/Guardian verbally acknowledges Yes understanding of treatment program and consents to further treatment? Patient/Guardian verbally acknowledges Yes understanding of diagnosis, prognosis and goals for treatment? Eval Complexity OT Charge 15349 - Low Complexity PHYSICIAN CERTIFICATION: I certify the specified therapy services for Hany Christie are required, authorized, and reviewed every 30 days.
== END 2023-06-23 11:05 | disposition home or self-care (01) ==
LOC: OT 10:00
PROVIDERS: PCP Orthopaedic Surgery; Visit Provider Orthopaedic Surgery
DX: M25.511 Pain in right shoulder (principal); Z96.611 Presence of right artificial shoulder joint
CPT/HCPCS: 97010; 97014; 97110; 97140; 97164; 97165; 97530; G0283

== ENCOUNTER 2023-08-02 12:29 | Emergency (ER) | payer BC, OTHER, SELFPAY ==
[2023-08-02 12:29] VITALS: BP 153/97; PULSE 96; RESP 18; TEMP 36.9; O2SAT 96; BMI 34.2
--- NOTE | 2023-08-02 12:37 | PC.NURSE ---
Dr. Bruce at [facility] for pt eval
--- NOTE | 2023-08-02 12:41 | XR_ITS ---
FINAL REPORT CLINICAL HISTORY: subacute cough COMPARISON: 03/22/2023 FINDINGS: SINGLE-VIEW CHEST The heart size is normal. The mediastinum is normal. The lungs are clear. There is no pneumothorax. IMPRESSION: No acute cardiopulmonary process. Reviewed, Interpreted and Dictated by Jr Chavez MD Transcribed by Ne Perez Authenticated and [facility]
--- NOTE | 2023-08-02 12:42 | ED_ITS ---
Discharge Plan Disposition Patient Disposition: Home, Self-Care Prescriptions Prescriptions: New ktqhusnuzskqyqr-nwnsjnxis-NE [Bromfed DM] 2-30-10 mg/5 mL syrup 5 ml PO Q6H PRN (Reason: cold symptoms) Qty: 118 0RF phenylephrine HCl 0.25 % spray,non-aerosol 1 spray intranasal Q8H 3 Days Qty: 15 0RF No Action mnhjlbttzrdorsm-ltbenhodn-MA [Bromfed DM] 2-30-10 mg/5 mL syrup 10 ml PO Q4-6H PRN (Reason: cough) Qty: 200 0RF Referrals Follow up/Referrals: Provider,Referral, MD [Primary Care Provider] - See instructions Activity Restrictions/Add. Instructions Additional Instructions/Restrictions: At this time it was felt you are safe to be discharged home. If new or worsening symptoms please do not hesitate to return the emergency department. If symptoms persist please follow-up with your family doctor as you are able. Please take your medications as prescribed. Clinical Impressions Clinical Impression: Influenza Discharge ED Provider: Lance Bruce General Adult HPI General Chief complaint: Upper Respiratory Infection Stated complaint: fever, cough, weakness, diarreah, congestion Time Seen by Provider: 08/02/23 12:34 History of Present Illness HPI narrative: Patient is a 32-year-old male with no pertinent past medical history who presents emergency department for evaluation of subacute cough. Since the week after patient has had cough, upper respiratory drainage. There was a couple days of interval resolution however he has had resurgence of symptoms, persistent throughout the day and at night. Adequate p.o. intake. This is impacting his sleep. No other acute complaints at this time Related Data Previous Rx's Medication Instructions Recorded vtiyhghsforvjhq-qzkicmgpeuafxym-BM 10 ml PO Q4-6H PRN cough #200 mL 06/28/23 2 mg-30 mg-10 mg/5 mL oral syrup (Bromfed DM) zcljgixxiuhdcis-bacmujpigpaxxnx-LU 5 ml PO Q6H PRN cold symptoms #118 08/02/23 2 mg-30 mg-10 mg/5 mL oral syrup mL (Bromfed DM) phenylephrine HCl 0.25 % nasal 1 spray intranasal Q8H runny nose 08/02/23 spray 3 days #15 mL Allergies Allergy/AdvReac Type Severity Reaction Status Date / Time No Known Allergies Allergy Verified 06/28/23 10:40 [facility] Disclaimer: The information contained in this section may have been updated after the patient was seen, as this information can be updated by other users. Medical History (Updated 08/02/23 @ 13:44 by Lance Bruce MD) Bronchitis Cholelithiasis Closed nondisplaced fracture of first metatarsal bone of left foot with routine healing Concussion Contusion of knee, right Edema of left foot Foot fracture, left Foot pain Fracture dislocation of joint Impingement of right shoulder Incomplete rotator cuff tear or rupture of right shoulder, not specified as traumatic Influenza Injury of left foot Monocular vision loss Obesity, Class II, BMI 35-39.9 Pharyngitis Right rotator cuff tendinitis Sinusitis Viral syndrome Surgical History (Updated 06/28/23 @ 10:42 by Jayce Pierre) History of laparoscopic cholecystectomy S/P rotator cuff repair Family History Other No significant family history Social History Smoking Status: Never smoker second hand exposure: No alcohol intake: never substance use type: denies use current occupational status: employed Travel in the last 8 weeks: None household members: significant other housing: house current occupation: [employer] current occupational exposures/hazards: No caffeine: Yes ROS Obtained: Yes Systems reviewed as appropriate & no additional complaints except as documented Physical Exam General General appearance: alert and in no apparent distress Head Head exam: atraumatic and normocephalic Eye Eye exam: Present PERRL and EOMI ENT ENT exam: Present mucous membranes moist; Absent normal oropharynx (Mildly erythematous posterior oropharynx, uvula midline, no tonsillar swelling, no purulence) Neck Neck exam: Present normal inspection Chest Chest inspection: Present normal inspection and symmetric chest wall rise Respiratory Respiratory exam: Present normal lung sounds bilaterally; Absent respiratory distress or wheezes Cardiovascular Cardiovascular exam: Present regular rate and normal rhythm Abdominal Exam Abdominal exam: Present soft Extremities Exam Extremities exam: Present normal inspection Neurological Exam Neurological exam: Present alert Psychiatric Psychiatric exam: Present normal affect Skin Skin exam: Present warm and dry Medical Decision Making Rajan Inquiry Pt receiving controlled substance: No Vital Signs: 08/02/23 12:29 08/02/23 13:04 08/02/23 12:50 Temperature 98.5 F Temperature Source Oral Pulse Rate 93 H 95 H Pulse Rate [Right] 96 H Respiratory Rate 18 Blood Pressure Blood Pressure [Right Arm] 153/97 H Blood Pressure Mean [Right Arm] 115 Blood Pressure Source [Right Arm] Automatic Cuff 02 Sat by Pulse Oximetry 96 Oxygen Delivery Method Room Air 08/02/23 13:00 Temperature Temperature Source Pulse Rate 97 H Pulse Rate [Right] Respiratory Rate Blood Pressure 108/84 L Blood Pressure [Right Arm] Blood Pressure Mean [Right Arm] Blood Pressure Source [Right Arm] 02 Sat by Pulse Oximetry 96 Oxygen Delivery Method Room Air Lab Data Lab Results 08/02/23 12:35: SARS-CoV-2 (PCR) Not detected, Influenza A Untype (PCR) Detected A, Influenza Type B (PCR) Not detected Orders (Tests/Meds): ED MEDICATIONS Discontinued Medications Generic Name Dose Route Start Last Admin Trade Name Freq PRN Reason Stop Dose Admin Lidocaine HCl 5 ml 08/02/23 13:00 08/02/23 13:02 Lidocaine 2% 20ml Vial IH 08/02/23 13:01 5 ml ONCE ONE Administration ORDERS Category Date Time Status CXR --portable [XR chest portable] Stat Exams 08/02/23 12:41 Taken Rapid PCR Covid and Flu A/B Stat Lab 08/02/23 12:35 Completed Medical Decision Narrative: In summary patient is a 32-year-old male with past medical history described above presents emergency department for evaluation of subacute cough and congestion. Patient is hemodynamically stable nontoxic-appearing upon arrival, afebrile. Differential diagnosis includes pneumonia, viral syndrome that is prolonged, serial viral infections, among others. Workup will be conducted with chest x-ray, viral swab. Initial inventions include lidocaine neb in an attempt to break the cough cycle. Workup reviewed by me, swab remarkable for flu, patient is outside the window for Tamiflu. Chest x-ray informally interpreted by me, no acute lobar opacities or large pneumothorax. On repeat evaluation patient continued to saturate well on room air. Given this patient is appropriate for discharge at this time will be discharged with a course of Bromfed and was given return precautions. Critical Care Critical Care Time Critical Care Time: No
[2023-08-02 12:49] LABS: Coronavirus 19, PCR Not Detected (NotDetected); Influenza B, PCR Not Detected (NotDetected)
[2023-08-02 12:50] VITALS: PULSE 95
[2023-08-02 13:00] VITALS: BP 108/84; PULSE 97; O2SAT 96
[2023-08-02] MEDS: LIDOCAINE 2% 20ML VIAL 5 ML IH (13:02)
[2023-08-02 13:04] VITALS: PULSE 93
[2023-08-02 13:22] LABS: Influenza A, PCR Detected (NotDetected)
[2023-08-02 13:30] VITALS: BP 129/85; PULSE 95; RESP 22; O2SAT 97
--- NOTE | 2023-08-02 13:41 | PC.NURSE ---
Dr. Bruce at [facility] to update on results and POC
[2023-08-02 14:21] VITALS: BP 142/88; PULSE 92; RESP 18; TEMP 36.8; O2SAT 99
== END 2023-08-02 14:22 | disposition home or self-care (01) ==
PROVIDERS: Emergency Provider Emergency Medicine
DX: J10.1 Influenza due to other identified influenza virus with other respiratory manifestations (principal); J10.2 Influenza due to other identified influenza virus with gastrointestinal manifestations; R50.9 Fever, unspecified; R05.9 Cough, unspecified; R19.7 Diarrhea, unspecified
CPT/HCPCS: 71045; 87636; 99283

== ENCOUNTER 2023-12-19 17:10 | Emergency (ER) | payer BC, OTHER, SELFPAY ==
[2023-12-19 17:13] VITALS: BP 147/90; PULSE 83; RESP 20; TEMP 36.6; O2SAT 99; BMI 34.2
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
--- NOTE | 2023-12-19 17:24 | CT_ITS ---
PROCEDURE INFORMATION: Exam: CT Maxillofacial With Contrast Exam date and time: 12/19/2023 6:08 PM Age: 33 years old Clinical indication: Other: Periorbital cellulitis; Additional info: Facial abscess, periorbital cellulitis TECHNIQUE: Imaging protocol: Computed tomography of the face with contrast. Radiation optimization: All CT scans at this facility use at least one of these dose optimization techniques: automated exposure control; mA and/or kV adjustment per patient size (includes targeted exams where dose is matched to clinical indication); or iterative reconstruction. Contrast material: ISOVUE; Contrast volume: 100 ml; Contrast route: IV; COMPARISON: CT ANGIO HEAD 02/10/2023 19:55 FINDINGS: Orbital cavities: Orbits are normal. Globes are unremarkable. Bones: See Dental finding. Paranasal sinuses: Mild mucosal thickening in the paranasal sinuses. Auditory system: Punctate densities in the right external auditory canal of indeterminate significance. Soft tissues: Marked soft tissue swelling around the right side of the face and right periorbital region. Dental: There is a large dental cavity of 2 6 with periapical lucency that has eroded through the maxilla. There is an adjacent 1.4 cm peripherally enhancing fluid collection on image 42 series 4. Multiple dental cavities with periapical lucencies that likely represent dental infection. IMPRESSION: 1. Odontogenic infection of tooth 6 with adjacent abscess. 2. No intraorbital infection. 3. Multiple dental cavities with periapical lucencies that likely represent dental infection. 4. Punctate densities in the right external auditory canal of indeterminate significance. Please correlate with direct visualization.
[2023-12-19] MEDS: KETOROLAC 30MG/ML VIAL 15 MG IV (17:40)
[2023-12-19] MEDS: ACETAMINOPHEN 1,000MG/100ML VIAL 1000 MG IV (17:40)
[2023-12-19] MEDS: LIDOCAINE 2% VISCOUS SOL 15ML UDC 15 ML PO (17:40)
[2023-12-19] MEDS: OXYCODONE 5MG IMMEDIATE RELEASE TABLET 5 MG PO (17:41)
[2023-12-19 17:45] LABS: Basophils % 0.5 % (0.1-2.0); Chloride 100 mmol/L (98-107); Eosinophils # 0.1 K/mm3 (0.0-0.4); Eosinophils % 0.7 % (0.1-12.0); Lymphocytes # 1.7 K/mm3 (0.7-4.5); Mean Corpuscular HGB Conc 33.3 g/dL (31.8-35.4); Mean Corpuscular Hemoglobin 30.2 pg (27.0-31.2); Mean Corpuscular Volume 90.6 fl (80-94); Mean Platelet Volume 7.3 fl (7.4-10.4); Monocytes # 0.4 K/mm3 (0.1-1.0); Monocytes % 4.9 % (1.7-9.3); Neutrophils # 5.8 K/mm3 (1.8-7.8); Neutrophils % 72.8 % (37.0-80.0); Platelet Count 194 K/mm3 (142-424); Potassium 3.8 mmoL/L (3.5-5.1); Red Blood Count 4.96 M/mm3 (4.60-6.20); Red Cell Distribution Width 13.4 % (11.5-17.5); Sodium 139 mmol/L (136-145)
[2023-12-19 17:48] LABS: Anion Gap 13.8 mEq/L (5-15); Blood Urea Nitrogen 12 mg/dl (9-20); Calcium 9.4 mg/dl (8.4-10.2); Carbon Dioxide 29 mmol/L (22.0-30.0); Creatinine Clearance Estimated 191 mL/min (50-200); Estimated Glomerular Filt Rate 96 ml/min (>60); GFR (African American) 116 ML/MIN (>60); Glucose 123 mg/dl (74-100)
[2023-12-19] MEDS: SODIUM CHLORIDE 0.9% 10ML SYR (RAD ONLY) 10 ML IV (18:12)
[2023-12-19] MEDS: IOPAMIDOL-370 (76%);100ML BOTTLE 100 ML IV (18:12)
--- NOTE | 2023-12-19 18:12 | PC.NURSE ---
Pt resting in chair. No needs voiced. Call light within reach.
[2023-12-19] MEDS: DEXAMETHASONE 4MG/ML 1ML VIAL 10 MG IV (18:31)
[2023-12-19] MEDS: PIPERACILLIN/TAZO 4.5 GM in 0.9 % SODIUM CHLORIDE 100 ML IV (18:34)
[2023-12-19 18:50] VITALS: BP 125/74; PULSE 77; O2SAT 96
--- NOTE | 2023-12-19 18:51 | PC.NURSE ---
Rounded on pt. No needs voiced at this time. Call light within reach.
--- NOTE | 2023-12-19 19:11 | PC.NURSE ---
call placed to [facility] for Dr. Thompson re transfer to [facility]
--- NOTE | 2023-12-19 19:14 | PC.NURSE ---
images being power shared to [facility], disc being made
--- NOTE | 2023-12-19 19:29 | PC.NURSE ---
[facility] on phone with Dr. Soto at this time
[2023-12-19 20:16] VITALS: BP 137/93; PULSE 76; RESP 20; TEMP 36.7; O2SAT 97
== END 2023-12-19 20:17 | disposition home or self-care (01) ==
PROVIDERS: Physician Assistant; Emergency Provider Emergency Medicine
DX: L02.01 Cutaneous abscess of face (principal); R22.0 Localized swelling, mass and lump, head; S02.5XXA Fracture of tooth (traumatic), initial encounter for closed fracture; W22.8XXA Striking against or struck by other objects, initial encounter
CPT/HCPCS: 70487; 80048; 85025; 96365; 96375; 99284; J0131; J2543; Q9967

== ENCOUNTER 2024-09-03 15:50 | Outpatient (CLI) | payer BC, SELFPAY | END 2024-09-03 23:59 | disposition home or self-care (01) | LOC: RT 15:53 | PROVIDERS: PCP Internal Medicine Adolescent Medicine; Visit Provider Nurse Practitioner Family | DX: R42 Dizziness and giddiness (principal); Z86.73 Personal history of transient ischemic attack (TIA), and cerebral infarction without residual deficits | CPT/HCPCS: 93270; 93272 ==

== ENCOUNTER 2024-09-06 07:51 | Outpatient (CLI) | payer BC, SELFPAY ==
--- NOTE | 2024-09-06 | CA_ITS ---
FINAL REPORT CLINICAL HISTORY: DIZZINESS TIA FINDINGS: The peak systolic velocity of the right common carotid artery is 105 cm/s. The peak systolic velocity of the right internal carotid artery is 92 cm/s and end diastolic velocity 22 cm/s. The ICA/CCA ratio is 0.93. A small amount of plaque is present. The right external carotid artery is patent. The right vertebral artery is patent with antegrade flow. The peak systolic velocity of the left common carotid artery is 142 cm/s. The peak systolic velocity of the left internal carotid artery is 126 cm/s and end diastolic velocity 29 cm/s. The ICA/CCA ratio is 1.2. A small amount of plaque is present. The left external carotid artery is patent.The left vertebral artery is patent with antegrade flow. IMPRESSION: Less than 50% bilateral carotid stenoses. Bilateral patent vertebral arteries with antegrade flow. If indicated, CTA or MRA could further evaluate. Reviewed, Interpreted and Dictated by Jr Chavez MD Transcribed by Ne Perez Authenticated and [facility]
--- NOTE | 2024-09-06 08:57 | XR_ITS ---
FINAL REPORT CLINICAL HISTORY: RULE PUT METALLIC FORIEGN BODY FOR MRI COMPARISON: CT head 08/25/2024 FINDINGS: 4 views of the skull were obtained. There are 2 small metallic densities in the projection of the anterior medial mastoid air cell on the right. These measure approximately 1.5 cm in diameter. There is an ossific protuberance noted posteriorly. The paranasal sinuses are well aerated. IMPRESSION: 2 metallic appearing densities projected in the medial right mastoid. Review of prior CT demonstrates similar appearing densities residing within the right external auditory canal. Otoscopic exam recommended. Reviewed, Interpreted and Dictated by Jr Chavez MD Transcribed by Clau Rose Authenticated and . [facility]
== END 2024-09-06 23:59 | disposition home or self-care (01) ==
LOC: RAD 07:52
PROVIDERS: PCP Nurse Practitioner Family; Visit Provider Nurse Practitioner Family
DX: R42 Dizziness and giddiness (principal); R55 Syncope and collapse; R29.898 Other symptoms and signs involving the musculoskeletal system; Z86.73 Personal history of transient ischemic attack (TIA), and cerebral infarction without residual deficits
CPT/HCPCS: 70260; 93880

== ENCOUNTER 2024-09-07 23:32 | Emergency (ER) | payer BC, SELFPAY ==
[2024-09-07 23:33] VITALS: BP 153/94; PULSE 84; RESP 18; TEMP 36.6; O2SAT 100; BMI 38.2
--- NOTE | 2024-09-07 23:43 | HMH.EDGENADL ---
Discharge Plan Disposition Patient Disposition: Home, Self-Care Condition: Good Prescriptions Prescriptions: No Action nwifixonsbxbafd-cpiompqmv-TS [Bromfed DM] 2-30-10 mg/5 mL syrup 10 ml PO Q4-6H PRN (Reason: cough) Qty: 200 0RF amoxicillin-pot clavulanate 875-125 mg tablet 1 tab PO BID Qty: 20 0RF oxycodone 5 mg tablet 5 mg PO Q6H PRN (Reason: pain) Qty: 8 0RF xioppxzhskedjye-krddmhjqb-UW [Bromfed DM] 2-30-10 mg/5 mL syrup 5 ml PO Q6H PRN (Reason: cold symptoms) Qty: 118 0RF phenylephrine HCl 0.25 % spray,non-aerosol 1 spray intranasal Q8H 3 Days Qty: 15 0RF Referrals Follow up/Referrals: Christa Castelan APRN [Primary Care Provider] - See instructions Activity Restrictions/Add. Instructions Additional Instructions/Restrictions: Recommend antiobiotic ointment and followup as needed. Clinical Impressions Clinical Impression: Folliculitis Instructions Patient Instructions: DI for Skin Abscess Print Language Print Language: Slovak Discharge ED Provider: Chandrakant Manzo General Adult HPI General Chief complaint: Skin/Abscess/Foreign Body Stated complaint: lump on head Time Seen by Provider: 09/07/24 23:35 History of Present Illness HPI narrative: 33-year-old male presents for painful lump on his head. He reports that he noticed it earlier today. It is located centrally above his forehead. He reports is painful to touch. He is concerned because he had a possible stroke a few weeks ago at another hospital and is worried this could be related to his stroke. He also has a couple of red spots on the back of his neck. No other fever or illness reported. Related Data Previous Rx's ?Medication ?Instructions ?Recorded vunbyadrayugugi-pqycxjxhxgbiqak-CA 10 ml PO Q4-6H PRN cough #200 mL 06/28/23 2 mg-30 mg-10 mg/5 mL oral syrup (Bromfed DM) hceggrrpejnbfcs-vfhczoxptmosbca-FH 5 ml PO Q6H PRN cold symptoms #118 08/02/23 2 mg-30 mg-10 mg/5 mL oral syrup mL (Bromfed DM) phenylephrine HCl 0.25 % nasal 1 spray intranasal Q8H runny nose 08/02/23 spray 3 days #15 mL amoxicillin 875 mg-potassium 1 tab PO BID #20 tabs 12/19/23 clavulanate 125 mg tablet oxycodone 5 mg tablet 5 mg PO Q6H PRN pain #8 tabs 12/19/23 Allergies Allergy/AdvReac Type Severity Reaction Status Date / Time No Known Allergies Allergy Verified 06/28/23 10:40 [facility] Disclaimer: The information contained in this section may have been updated after the patient was seen, as this information can be updated by other users. Medical History (Updated 09/08/24 @ 00:03 by Chandrakant Manzo MD) Incomplete rotator cuff tear or rupture of right shoulder, not specified as traumatic Right rotator cuff tendinitis Impingement of right shoulder Monocular vision loss Influenza Pharyngitis Viral syndrome Obesity, Class II, BMI 35-39.9 Edema of left foot Fracture dislocation of joint Injury of left foot Closed nondisplaced fracture of first metatarsal bone of left foot with routine healing Foot pain Foot fracture, left Sinusitis Bronchitis Contusion of knee, right Concussion Cholelithiasis Surgical History (Updated 06/28/23 @ 10:42 by Jayce Hinton) S/P rotator cuff repair History of laparoscopic cholecystectomy Family History Other No significant family history Social History Smoking Status: Current every day smoker tobacco type: smokeless tobacco second hand exposure: No alcohol intake: never substance use type: denies use current occupational status: employed Travel in the last 8 weeks: None household members: significant other housing: house current occupation: [employer] current occupational exposures/hazards: No caffeine: Yes Have you lived/traveled outside [place] in past 30 days?: No Contact w/someone who lives/traveled outside US past 30 days?: No Exposure to someone with infectious disease in past 14 days?: No Do you have a fever (greater than 100.4 F or 38 C)?: No Have you tested positive for COVID-19: No Exposed to someone with COVID-19 in past 14 days?: No Do you have a sore throat?: No Do you have a cough?: No Do you have any weakness?: No Do you have any diarrhea?: No Are you experiencing any unusual bleeding?: No Do you have any muscle aches/pain?: No Do you have any abdominal pain?: No Are you experiencing loss of taste or smell?: No Other Medical History Have you received the Flu Vaccine for this season: No Have you received the Pneumonia Vaccine: No ROS Obtained: Yes All systems reviewed & no additional complaints except as documented Physical Exam General General appearance: alert and in no apparent distress Head Head exam: atraumatic and normocephalic Eye Eye exam: Present normal appearance, PERRL and EOMI ENT ENT exam: Present normal oropharynx and normal external ear exam Neck Neck exam: Present full ROM and other (Small area of folliculitis over the nape of the neck) Chest Chest inspection: Present normal inspection and symmetric chest wall rise; Absent tenderness Respiratory Respiratory exam: Present normal lung sounds bilaterally; Absent respiratory distress Cardiovascular Cardiovascular exam: Present regular rate and normal rhythm Abdominal Exam Abdominal exam: Present soft; Absent distention, tenderness or guarding Extremities Exam Extremities exam: Present normal inspection; Absent edema or joint swelling Back Exam Back exam: Present normal inspection; Absent tenderness Neurological Exam Neurological exam: Present alert and oriented X3; Absent motor sensory deficit Psychiatric Psychiatric exam: Present normal affect and normal mood Skin Skin exam: Present warm, dry and normal color Lymphatic Lymphatic Findings: no adenopathy Medical Decision Making Medical Records Medical records reviewed: Yes I reviewed the patient's medical records. Screening: Per USPSTF and CDC recommendations, given the prevalence of disease in our region, it is our hospital?s policy to screen for HIV and viral Hepatitis for all patients aged 18 and over and those with ongoing risk factors. Rajan Inquiry Pt receiving controlled substance: No Rajan was queried for this patient: No Vital Signs: 09/07/24 23:33 09/08/24 00:07 Temperature 97.9 F 97.9 F Temperature Source Oral Oral Pulse Rate 80 Pulse Rate [Right Brachial] 84 Respiratory Rate 18 18 Blood Pressure 153/84 H Blood Pressure [Right Arm] 153/94 H Blood Pressure Mean [Right Arm] 113 Blood Pressure Source Automatic Cuff Blood Pressure Source [Right Arm] Automatic Cuff Blood Pressure Position Supine Blood Pressure Position [Right Arm] Supine 02 Sat by Pulse Oximetry 100 Oxygen Delivery Method Room Air Room Air Lab Data Lab results reviewed: Yes I reviewed the patient's lab results. Medical Decision Narrative: 33-year-old male with reported history of recent stroke presents for painful lump on his head.. History was obtained via interactive discussion with patient, family. On arrival, patient is [afebrile, hemodynamically stable, satting appropriately, alert, oriented x4, GCS 15], moving all extremities spontaneously. Full physical exam performed and significant for no notable lump on the top of his head on exam, no erythema, no lymphadenopathy. Patient does have minimal folliculitis on the hair on the nape of the neck. Differential includes abscess cellulitis lymphadenopathy folliculitis. No evidence of emergent pathology at this time. Recommend patient use warm compresses and frequent cleaning and 3 times daily application of topical antibiotic ointment for the areas of folliculitis. Recommended he monitor the area above his forehead for improvement or worsening as this could be a developing issue that is not apparent at this time. Patient was discharged in stable condition. Procedures Risk/Benefits of Procedure(s) Were Explained: Yes Critical Care Critical Care Time Critical Care Time: No
[2024-09-08 00:07] VITALS: BP 153/84; PULSE 80; RESP 18; TEMP 36.6; O2SAT 100
== END 2024-09-08 00:10 | disposition home or self-care (01) ==
PROVIDERS: Emergency Provider Emergency Medicine; PCP Nurse Practitioner Family
DX: L73.9 Follicular disorder, unspecified (principal); R22.0 Localized swelling, mass and lump, head; R21 Rash and other nonspecific skin eruption
CPT/HCPCS: 99282

== ENCOUNTER 2024-09-09 12:02 | Outpatient (CLI) | payer BC, SELFPAY ==
--- NOTE | 2024-09-09 12:08 | XR_ITS ---
FINAL REPORT CLINICAL HISTORY: FOREIGN BODY RT EAR..r/o fb for mri COMPARISON: 09/06/2024 FINDINGS: Four views of the skull were obtained. The previously noted tiny radiodensities in the projection of the right mastoid air cells are no longer seen. IMPRESSION: No evidence of previously noted radiodensities. Reviewed, Interpreted and Dictated by Jr Chavez MD Transcribed by Elizabeth Brown Authenticated and [facility]
== END 2024-09-09 23:59 | disposition home or self-care (01) ==
LOC: RAD 12:04
PROVIDERS: PCP Nurse Practitioner Family; Visit Provider Nurse Practitioner Family
DX: T16.1XXD Foreign body in right ear, subsequent encounter (principal)
CPT/HCPCS: 70250

== ENCOUNTER 2024-09-10 10:52 | Outpatient (CLI) | payer BC, SELFPAY ==
--- NOTE | 2024-09-10 10:55 | MR_ITS ---
FINAL REPORT CLINICAL HISTORY: hx of cva, dizziness lle weakness syncope COMPARISON: 09/06/2024 FINDINGS: Multiplanar MR imaging of the brain was performed without and with contrast. There is no evidence of intracranial hemorrhage or mass. No abnormal extra-axial fluid collection is seen. The ventricular size is within normal limits. There is no evidence of shift of the midline structures. The posterior fossa and brainstem have an unremarkable appearance. No area of abnormal restricted diffusion is identified. No abnormal contrast enhancement is seen. Normal major vessel vascular flow voids are noted. IMPRESSION: No acute intracranial abnormality identified. Reviewed, Interpreted and Dictated by Jr Chavez MD Transcribed by Doris Bland Authenticated and [facility]
[2024-09-10] MEDS: GADOTERIDOL INJ 20ML SYRINGE 20 ML IV (11:51)
[2024-09-10] MEDS: SODIUM CHLORIDE 0.9% 10ML SYR (RAD ONLY) 10 ML IV (11:51)
[2024-09-10] MEDS: GADOTERIDOL INJ 10ML SYRINGE 7 ML IV (11:51)
== END 2024-09-10 23:59 | disposition home or self-care (01) ==
LOC: RAD 10:53
PROVIDERS: PCP Nurse Practitioner Family; Visit Provider Nurse Practitioner Family
DX: R42 Dizziness and giddiness (principal); R55 Syncope and collapse; R29.898 Other symptoms and signs involving the musculoskeletal system; Z86.73 Personal history of transient ischemic attack (TIA), and cerebral infarction without residual deficits
CPT/HCPCS: 70553; A9576

== ENCOUNTER 2024-09-25 15:00 | Outpatient (RCR) | payer BC, SELFPAY ==
--- NOTE | 2024-09-09 13:53 | HMH.PTOPEV ---
PT Outpatient Evaluation Rehab PT Outpatient Evaluation Start: 09/09/24 12:55 Freq: Status: Active Protocol: Document 09/09/24 12:55 LELAND (Rec: 09/09/24 13:52 LELAND [id number]) E-signed By Nvaeen Devries, PT Outpatient Therapy Subjective History Subjective History Pt is a 33 yom who is referred to [facility] outpatient Physical Therapy following a stroke that occurred approximately two weeks ago. He reports that he was completely paralyzed from the neck down for several hours. He reports that he went to [facility] and received the clot buster and most of his symptoms resolved. He reports that he has no issue in his L arm but his L arm is very weak and he has noticed that he brings his leg up very high when he walks. He denies pain and denies numbness and tingling at this time. Pt reports a PMH of high cholesterol. New diagnosis of cancer in past 12 No months? Chief Complaint Weakness,Decreased Personal Development Mentor Strength Symptom Type Other Current Functional Limitations Housework,Driving,Sleeping, Standing,Squatting,Walking, Stairs,Balance Level of pain today (0-10) 0 Pain scale - at its best (0-10) 0 Pain scale - at its worst (0-10) 0 Hip/Knee Eval MMT left Hip Flexion Strength Grade 3 Fair Hip Abduction Strength Grade 3- Fair- Hip Adduction Strength Grade 3- Fair- Hip Extension Strength Grade 2+ Poor+ Knee Extension Strength Grade 3 Fair Knee Flexion Strength Grade 3 Fair Sensation Comment Global hypoesthesia on LLE Ankle/Foot Eval MMT Ankle Dorsiflexion Strength Grade 3 Fair Ankle Plantarflexion Strength Grade 3 Fair Balance Eval Hx of Falls Hx Falls No Number in last 6 months 0 Timed Up and Go Test 1. Is the Timed Up and Go test result > yes or = to 12 seconds? Tinetti Sitting Balance Sitting Balance Steady, safe Arising from Chair Ability to Arise Able, w/o using arms Attempts to Arise Arises on 1st attempt Standing Balance Immediate Standing Balance Steady w/o support Standing Balance Steady, wide stance Nudged Response Staggers, catches self Standing with Eyes Closed Unsteady Turning Step Pattern Turning 360 Degrees Discontinuous steps Stability Turning 360 Degrees Unsteady, grabs/staggers Sitting Down Sitting Down Uses arms or unsteady Gait and Step Initiation of Gait Hesitancy, mult. attempts Right Foot Step Length Does not pass stance ft. Right Foot Step Height Completely clears floor Left Foot Step Length Does not pass stance foot Left Foot Step Height Completely clears floor Step Description Step Symmetry Step length not equal Step Continuity Stopping or discontinuity Gait Description Path Description Straight Trunk Description No sway Walking Stance Heels together Scoring and Interpretation Tinetti Composite Score (points) 17 Lower Extremity Functional Index Activities Today, do you or would you have any difficulty at all with: a.Any of your usual work, housework or Moderate difficulty school activities b. Your usual hobbies, recreational or Moderate difficulty sporting activities c. Getting into or out of the bath A little bit of difficulty d. Walking between rooms A little bit of difficulty e. Putting on your shoes or socks Moderate difficulty f. Squatting Moderate difficulty g. Lifting an object, like a bag of No difficulty groceries from the floor h. Performing light activities around A little bit of difficulty your home i. Performing heavy activities around Moderate difficulty your home j. Getting into or out of a car A little bit of difficulty k. Walking 2 blocks Quite a bit of difficulty l. Walking a mile Quite a bit of difficulty m. Going up or down 10 stairs (about 1 Quite a bit of difficulty flight of stairs) n. Standing for 1 hour Quite a bit of difficulty o. Sitting for 1 hour Moderate difficulty p. Running on even ground Quite a bit of difficulty q. Running on uneven ground Quite a bit of difficulty r. Making sharp turns while running fast Quite a bit of difficulty s. Hopping Quite a bit of difficulty t. Rolling over in bed Moderate difficulty LEFI Score Lower Extremity Functional Index Score 38 Miscellaneous Dx PT Eval Objective Objective Gait Assessment: Steppage Gait Pattern with excessive hip flexion of the LLE during swing phase. Adequate dorsiflexion displayed throughout gait pattern. TUs 5xSTS: 29s Outpatient Therapy Assessment Impairments Problems/Impairmments Impaired Strength,Impaired Gait Pattern,Impaired Walking, Impaired Standing,Impaired Sitting,Impaired Lifting, Impaired Household Care, Impaired Stair Climbing, Impaired Tinnetti Score, Impaired TUG Time,Subjective C /O Pain Prognosis Rehab Potential Fair Comment w HEP compliance Clinical Impression Consistent with Diagnosis Yes Consistent with L Sided Weakness Additional details: Pt demonstrates signs and symptoms consistent with L sided weakness secondary to a stroke. He demonstrates impaired balance, gait pattern with a high steppage gait, weakness throughout the LLE globally. Skilled PT is indicated to address her current impairments, improve his quality of life and prevent further impairments. Short Term Goals Number of Weeks 4 Increase Strength Yes: 4/5 to LLE Globally Improve Transfers Yes: 5xSTS: 24s Improve Gait Pattern without Assistive Yes: decreased hip flexion Device during swing of LLE Increase Ability to Stand Yes: 15 minutes Increase Tinnetti Score Yes: to 22 Improve LEFI Score Yes: to 48 Decrease TUG Time Yes: 12s Patient to be Ind w/ HEP Yes Snf Goals Number of Weeks 8 Increase Strength Yes: 4+/5 to LLE Improve Transfers Yes: 5xSTS 20s Increase Ability to Walk Yes: 1/4 mile Increase Ability to Stand Yes: 30 minutes Increase Tinnetti Score Yes: to 24 Improve LEFI Score Yes: 58 Patient to be Ind w/ Advanced HEP Yes Outpatient Therapy Plan of Care Treatment Plan May Include Therapeutic Exercise Including Home Yes Exercise Program Manual Therapy Techniques Yes Neuromuscular Re-education Yes Therapeutic Activities to Return to Yes Previous Functional/Work Level Gait Training Yes ADL/Self Care Education Yes Thermal Modalities Yes Electrical Stimulation Yes Ultrasound/Phonophoresis Yes Manual Lymphatic Drainage Yes Eval/Re-Eval Yes Frequency Times per week 2 Duration Number of Weeks 8 Addendums This patient is a candidate for social No or vocational rehab? Patient/Guardian verbally acknowledges Yes understanding of treatment program and consents to further treatment? Patient/Guardian verbally acknowledges Yes understanding of diagnosis, prognosis and goals for treatment? Eval Complexity PT Charges 47378 - High Complexity Shoulder/Elbow Eval Shoulder Objective Measurements Elbow Objective Measurements PHYSICIAN CERTIFICATION: I certify the specified therapy services for Hany Christie are required, authorized, and reviewed every 30 days.
== END 2024-09-25 23:59 | disposition home or self-care (01) ==
LOC: PT 15:00
PROVIDERS: Visit Provider Nurse Practitioner Family
DX: R29.898 Other symptoms and signs involving the musculoskeletal system (principal); Z86.73 Personal history of transient ischemic attack (TIA), and cerebral infarction without residual deficits
CPT/HCPCS: 97110; 97116; 97163; 97530

== ENCOUNTER 2024-10-16 14:00 | Outpatient (RCR) | payer BC, SELFPAY ==
--- NOTE | 2024-10-10 17:54 | HMH.RHREAS ---
Rehab Reassessment Rehab OP Re-assessment Start: 10/08/24 07:59 Freq: Status: Active Protocol: Document 10/10/24 17:10 DOUGMARY ALICE (Rec: 10/10/24 17:53 LELAND [id number]) E-signed By JOSEPH Montejo Sitting Balance Sitting Balance Steady, safe Arising from Chair Ability to Arise Able, w/o using arms Attempts to Arise Arises on 1st attempt Standing Balance Immediate Standing Balance Steady w/o support Standing Balance Narrow stance w/o support Nudged Response Staggers, catches self Standing with Eyes Closed Steady Turning Step Pattern Turning 360 Degrees Continuous steps Stability Turning 360 Degrees Steady Sitting Down Sitting Down Safe, steady Gait and Step Initiation of Gait No hesitancy Right Foot Step Length Does pass stance foot Right Foot Step Height Completely clears floor Left Foot Step Length Does pass stance foot Left Foot Step Height Completely clears floor Step Description Step Symmetry Step length appears equal Step Continuity Steps appear continuous Gait Description Path Description Straight Trunk Description No sway Walking Stance Heels apart Scoring and Interpretation Tinetti Composite Score (points) 26 Interpretation of Scores Low risk for falls (>24) Lower Extremity Functional Index Activities Today, do you or would you have any difficulty at all with: a.Any of your usual work, housework or A little bit of difficulty school activities b. Your usual hobbies, recreational or A little bit of difficulty sporting activities c. Getting into or out of the bath A little bit of difficulty d. Walking between rooms No difficulty e. Putting on your shoes or socks Moderate difficulty f. Squatting A little bit of difficulty g. Lifting an object, like a bag of A little bit of difficulty groceries from the floor h. Performing light activities around A little bit of difficulty your home i. Performing heavy activities around Moderate difficulty your home j. Getting into or out of a car A little bit of difficulty k. Walking 2 blocks Moderate difficulty l. Walking a mile Moderate difficulty m. Going up or down 10 stairs (about 1 A little bit of difficulty flight of stairs) n. Standing for 1 hour Moderate difficulty o. Sitting for 1 hour No difficulty p. Running on even ground Moderate difficulty q. Running on uneven ground Moderate difficulty r. Making sharp turns while running fast Quite a bit of difficulty s. Hopping Moderate difficulty t. Rolling over in bed No difficulty LEFI Score Lower Extremity Functional Index Score 53 Rehab Re-assessment Subjective Subjective Pt reports that he would estimate that he is 75% improved at this point in his care. He reports that he went to see his Dr on Monday who put him off work until November 04, until he gets an MRI of his Lumbar spine. He reports that his walking has improved significantly. He reports that he no longer brings his foot up high when he walks. He does report that his toes no go outwards each time he takes a step and reports that this began after he had the nerve study completed. He is unsure of the results of his nerve study. The pt reports that he is having no pain. He reports that he is able to be on his feet for approximately 45 minutes before he is required to sit down. He reports that he has been consistent with his home exercises and wants to continue with PT because it is helping. Objective Objective Notes LEFS: 53 (39 on IE) 5xSTS; 21s TUs Strength: - Hip Flexion 4/5 - Hip Abduction: 4/5 - Knee Extension: 4/5 - Knee Flexion: 4/5 - Ankle DF: 3+/5 - Ankle Inv: 3+/5 - Ankle Eversion: 4/5 - Ankle PF: 4/5 Gait: normalized hip flexion during swing of LLE. Out- toeing gait during swing phase . Able to correct with VC. Assessment Progress Assessment Progressing as Expected Assessment Notes Pt is progressing as expected. Pt has demonstrated improvements in gait, balance, strength and reported improvements. Pt continues to demonstrate deficits in strength and tolerance to being on his feet for longer periods. The pt would continue to benefit from skilled PT to address his remaining impairments, to prepare him for a return to work and to return to his PLOF. Patient goals met ST,2,3,4,5,6,7,8 LT Plan Plan Continue as per initial POC Frequency of Therapy 2/week Duration of therapy 4 weeks Time and Billing Re-Eval Time 9 Re-Eval Billing Units 1 Charge for PT reassessment? Yes PHYSICIAN CERTIFICATION: I certify the specified therapy services for Hany Pratik are required, authorized, and reviewed every 30 days.
== END 2024-10-16 23:59 | disposition home or self-care (01) ==
LOC: PT 14:00
PROVIDERS: Visit Provider Nurse Practitioner Family
DX: R29.898 Other symptoms and signs involving the musculoskeletal system (principal); Z86.73 Personal history of transient ischemic attack (TIA), and cerebral infarction without residual deficits
CPT/HCPCS: 97110; 97164; 97530

== ENCOUNTER 2024-10-18 16:57 | Outpatient (CLI) | payer BC, SELFPAY ==
--- NOTE | 2024-10-18 17:05 | MR_ITS ---
PROCEDURE INFORMATION: Exam: MR Lumbar Spine Without Contrast Exam date and time: 10/18/2024 5:41 PM Age: 33 years old Clinical indication: Pain; Lumbago with sciatica; Additional info: Neuropathy of left lower leg TECHNIQUE: Imaging protocol: Magnetic resonance imaging of the lumbar spine without contrast. COMPARISON: ABDPELW CT abdomen pelvis w con 09/10/2018 8:40 PM FINDINGS: Bones/joints: Vertebral body heights are preserved. There is bilateral L5 spondylolysis and associated 3 mm grade 1 L5-S1 spondylolisthesis. There is disc desiccation and bulging, notable facet arthropathy at L5-S1. There is moderate to severe neural foraminal narrowing. Spinal cord: Visualized cord, conus medullaris and cauda equina are unremarkable without compression. L1-L2: No significant disc bulge or herniation. No severe spinal canal stenosis. No significant neural foraminal narrowing. L2-L3: No significant disc bulge or herniation. No severe spinal canal stenosis. No significant neural foraminal narrowing. L3-L4: No significant disc bulge or herniation. No severe spinal canal stenosis. No significant neural foraminal narrowing. L4-L5: At L4-L5 there is no significant canal narrowing. There is mild to moderate neural foraminal narrowing on the left due to a small lateral protrusion and facet arthropathy.. There is concentric narrowing of the canal around the tapering thecal sac. L5-S1: At L5-S1 there is disc bulging with facet arthropathy but no impingement upon the tapering thecal sac. Soft tissues: Unremarkable. IMPRESSION: L5 spondylolysis, grade 1 L5-S1 spondylolisthesis. Neural foraminal narrowing associated.
== END 2024-10-18 23:59 | disposition home or self-care (01) ==
LOC: RAD 16:57
PROVIDERS: PCP Nurse Practitioner Family; Visit Provider Nurse Practitioner Family
DX: R94.131 Abnormal electromyogram [EMG] (principal); G57.92 Unspecified mononeuropathy of left lower limb; M21.862 Other specified acquired deformities of left lower leg
CPT/HCPCS: 72148